=== PATIENT | female | born 1965 | race Asian ===

== ENCOUNTER 2017-07-21 14:46 | Emergency (ER) | payer MEDICAID, OTHER ==
[~2017-07-21] VITALS: Wt 82.3 kg
[~2017-07-21 14:46] MED LIST: CIPR500T4 PO; HYDR-3498 PO; IBUP800T25 PO
[2017-07-21] MEDS ORDERED: ONDANSETRON 4 MG INJ IV STA (16:44)
[2017-07-21] MEDS ORDERED: morphine 4 MG/ML VIAL IV STA (16:44)
[2017-07-21] MEDS ORDERED: SOD CHLORIDE 0.9% 1,000 ML IV STA (16:44)
[2017-07-21 17:07] LABS: BASOPHILS % 0.4 % (0.0-2.0); EOSINOPHILS # 0.2 10^3/ul (0.0-0.5); EOSINOPHILS % 2.2 % (0.0-7.0); HEMATOCRIT 44.8 % (37.0-47.0); HEMOGLOBIN 14.6 g/dl (12.0-16.0); LYMPHOCYTES # 2.6 10^3/ul (0.8-2.9); LYMPHOCYTES % 35.3 % (15.0-51.0); MEAN CORPUSCULAR HGB CONC 32.6 g/dl (32.0-37.0); MEAN PLATELET VOLUME 10.4 fl (7.4-10.4); MONOCYTE # 0.5 10^3/ul (0.3-0.9); MONOCYTES % 6.5 % (0.0-11.0); NEUTROPHIL # 4.1 10^3/ul (1.6-7.5); NEUTROPHILS % 55.3 % (39.0-77.0); PLATELET COUNT 226 10^3/UL (140-415); RED BLOOD COUNT 5.21 10^6/ul (4.20-5.40); RED CELL DISTRIBUTION WIDTH 12.9 % (11.5-14.5); WHITE BLOOD COUNT 7.4 10^3/ul (4.8-10.8)
[2017-07-21 17:26] LABS: ANION GAP 13 (8-16); BLOOD UREA NITROGEN 18 mg/dl (7-20); CALCIUM 8.6 mg/dl (8.4-10.2); CARBON DIOXIDE 26 mmol/L (21-31); CHLORIDE 108 mmol/L (97-110); CREATININE 0.95 mg/dl (0.44-1.00); GLUCOSE 73 mg/dl (70-220); POTASSIUM 4.2 mmol/L (3.5-5.1); SODIUM 143 mmol/L (135-144)
--- NOTE | 2017-07-21 17:37 | RADRPT ---
PROCEDURE: CT head CLINICAL INDICATION: Syncope TECHNIQUE: Contiguous 2.5 mm axial images were obtained from the vertex to the skull base. No int ravenous contrast was administered. The calculated dose length product (DLP) = 630.20 mGy-cm. The CTDlvol = 42.93 mGy. One or more of the following dose reduction techniques were used: Automated e xposure control, adjustment of the mA and or KV according to patient size, or use of iterative recon struction technique. COMPARISON: None FINDINGS: There is no evidence of acute intracranial hemorrhage or acute territorial infarct. No mass or mass effect is seen on this noncontrast study. The ventricles and cisterns are normal in size and confi guration. The preston-white matter differentiation is within normal limits. The visualized paranasal sinuses are normally aerated. The bony calvarium is unremarkable IMPRESSION: Unremarkable unenhanced CT of the brain RPTAT: HH .Rocky Li MD, Date Time Electronically viewed and signed by .Rocky Li MD, MD on 07/21/2017 17:37 .W/
[2017-07-21 17:38] LABS: TROPONIN-I < 0.012 ng/ml (0.00-0.12)
--- NOTE | 2017-07-21 17:49 | RADRPT ---
PROCEDURE: CT SCAN OF FACE AND SINUSES CLINICAL INDICATION: Syncope TECHNIQUE: Transaxial slices through the sinus was obtained with bone and soft tissue windows. Add itional sagittal and coronal reconstruction images were acquired. One of more of the following dose reduction techniques were utilized: -automatic exposure control.-adjustment of the mA and/or kV acco rding to patient size. -Use of iterative reconstruction technique.DICOM images available Radiation Dose: CTDI vol 29.41 mGy, DLP 508.24 mGy-cm. One of more of the following dose reduction techniques were utilized: -automatic exposure control -adjustment of the mA and/or kV according to patient size -Use of iterative reconstruction technique CONTRAST: None COMPARISON: CT head 07/21/2017 FINDINGS: Osteophytic spurring noted at C5-C7 level. Nasal septum is in the midline. Ostiomeatal unit is paten t with no blowout fracture noted. Atlantoaxial, atlanto-occipital joints, temporomandibular joints, hard palate appears intact. Fractured nasal bones seen. Soft tissue swelling noted over left tempora l region with some air also noted in the left middle cranial fossa. Nasopharynx, oropharynx appears unremarkable. Zygoma appears intact. The globe, retrobulbar area appears unremarkable. IMPRESSION: Fracture nasal bones with air and soft tissue swelling in the left temporal area. RPTAT: [facility] Physician Tristian Date Time Electronically viewed and signed by Physician Tristian on 07/21/2017 17:49 MB/
--- NOTE | 2017-07-21 18:03 | RADRPT ---
PROCEDURE: Right elbow CLINICAL INDICATION: Pain, fall TECHNIQUE: 3 views COMPARISON: None FINDINGS: Bony alignment and density appears unremarkable with no acute fracture, dislocation, periosteal reac tion noted. No radiopaque foreign body seen. No posterior fat pad sign noted. IMPRESSION: No fractures seen. RPTAT: [facility] Physician Tristian Date Time Electronically viewed and signed by Diony Hobbs Physician on 07/21/2017 18:03 MB/
[2017-07-21] MEDS ORDERED: DOCU-144 PO (18:05)
[2017-07-21] MEDS ORDERED: HYDR-906 PO (18:05)
--- NOTE | 2017-07-21 18:06 | ERD ---
ER Documentation Chief Complaint Chief Complaint r. sided facial,elbow,knee pain s/p syncopal episode on Sat while showering HPI Patient is a 51-year-old female with arthritis who presents with syncope. She said that she has a history of passing out in the past and that she passed out on Friday. That was 2 days ago. She felt like she would pain prior to passing out. She was in the bathroom and hit her face on the faucet. She has bruising around the right face and right eye. She has a headache and nausea which is why she came to the ER today. She also hit her right elbow and has right-sided elbow pain but she has full range of motion. Upon review of old medical records the patient one previous visit to the ER in 2015. She does have a primary doctor. ROS All systems reviewed and are negative except as per history of present illness. Medications Home Meds Active Scripts Docusate Sodium* (Colace*) 100 Mg Capsule, 100 MG PO TID, #30 CAP Prov:ANA BIRMINGHAM MD 07/21/17 Hydrocodone/Acetaminophen ([place] 5-325 Tablet) 1 Each Tablet, 1 TAB PO Q6H Y for PAIN, #7 TAB Prov:ANA BIRMINGHAM MD 07/21/17 Hydrocodone Bit-Acetaminophen* ([place]*) 5-325 Mg Tab, 1 TAB PO Q6 Y for PAIN, # 20 TAB Prov:GISELA CHURCH 05/13/15 Ibuprofen* (Motrin*) 800 Mg Tab, 800 MG PO Q6H Y for PAIN AND OR ELEVATED TEMP, #20 TAB Prov:GISELA CHURCH 05/13/15 Ciprofloxacin Hcl* (Ciprofloxacin Hcl*) 500 Mg Tablet, 500 MG PO BID for 7 Days , TAB Prov:GISELA CHURCH 05/13/15 Allergies Allergies: Coded Allergies: No Known Allergy (Unverified , 05/13/15) PMhx/Soc History of Surgery: Yes (APPENDECTOMY, ORTHO) Anesthesia Reaction: No Hx Neurological Disorder: No Hx Respiratory Disorders: No Hx Cardiac Disorders: No Hx Psychiatric Problems: No Hx Miscellaneous Medical Probl: No Hx Alcohol Use: Yes (OCASSIONALLY) Hx Substance Use: No Hx Tobacco Use: No Smoking Status: Never smoker FmHx Family History: No diabetes Physical Exam Vitals Vital Signs Date Time Temp Pulse Resp B/P Pulse Ox O2 Delivery O2 Flow Rate FiO2 07/21/17 18:13 70 20 114/67 99 Room Air 07/21/17 14:48 98.3 77 20 134/97 99 Physical Exam Const: Bruising to the face Head: Bruising the right base Eyes: Normal Conjunctiva ENT: Normal External Ears, Nose and Mouth. Neck: Full range of motion..~ No meningismus. Resp: Clear to auscultation bilaterally Cardio: Regular rate and rhythm, no murmurs Abd: Soft, non tender, non distended. Normal bowel sounds Skin: Bruising of the right face Back: No midline or flank tenderness Ext: No cyanosis, or edema Neur: Awake and alert Psych: Normal Mood and Affect Result Diagram: 07/21/17165207/21/171652 Results 24 hrs Laboratory Tests Test 07/21/17 16:53 White Blood Count 7.410^3/ul Red Blood Count 5.2110^6/ul Hemoglobin 14.6g/dl Hematocrit 44.8% Mean Corpuscular Volume 86.0fl Mean Corpuscular Hemoglobin 28.0pg Mean Corpuscular Hemoglobin Concent 32.6g/dl Red Cell Distribution Width 12.9% Platelet Count 30713^3/UL Mean Platelet Volume 10.4fl Neutrophils % 55.3% Lymphocytes % 35.3% Monocytes % 6.5% Eosinophils % 2.2% Basophils % 0.4% Nucleated Red Blood Cells % 0.0/100WBC Neutrophils # 4.110^3/ul Lymphocytes # 2.610^3/ul Monocytes # 0.510^3/ul Eosinophils # 0.210^3/ul Basophils # 0.010^3/ul Nucleated Red Blood Cells # 0.010^3/ul Sodium Level 143mmol/L Potassium Level 4.2mmol/L Chloride Level 108mmol/L Carbon Dioxide Level 26mmol/L Anion Gap 13 Blood Urea Nitrogen 18mg/dl Creatinine 0.95mg/dl Glucose Level 73mg/dl Calcium Level 8.6mg/dl Troponin I < 0.012ng/ml Current Medications Medications (Trade) Dose Ordered Sig/Corazon Route PRN Reason Start Time Stop Time Status Last Admin Dose Admin Sodium Chloride (NS) 1,000 ml @ 1,000 mls/hr Q1H STAT IV 07/21/17 16:44 07/21/17:43 DC 07/21/17 17:08 Morphine Sulfate (morphine) 4 mg ONCE STAT IV 07/21/17 16:44 07/21/17 16:45 DC Ondansetron HCl (Zofran Inj) 4 mg ONCE STAT IV 07/21/17 16:44 07/21/17 16:45 DC Procedures/MDM EKG read by me: Rate/Rhythm: Regular rate and rhythm at a rate of 65 Intervals: Normal Impression: No evidence of ischemia or arrhythmia CT brain negative per radiology. CT face shows nasal fractures per radiology. Patient is a 51-year-old female presents with syncope. Her laboratory studies are normal. EKG was normal. CT brain shows no skull fracture or intracranial hemorrhage. Her CT face does show nasal bone fractures. At this point I believe outpatient management is appropriate. She was given copies of her laboratory studies and CT scan report. She can return for any worsening symptoms. She will need to follow-up closely with her primary doctor within 24- 48 hours. I told her that if she gets this feeling of possibly passing out she needs to sit down immediately to avoid falling and hurting herself in the future. Departure Diagnosis: Primary Impression: Nasal fracture Encounter type: initial encounter Fracture type: closed Qualified Code: S02.2XXA - Closed fracture of nasal bone, initial encounter Additional Impression: Syncope Syncope type: unspecified Qualified Code: R55 - Syncope, unspecified syncope type Condition: Fair Patient Instructions: Fracture, Nose (With X-Ray), Syncope, Unk Cause Referrals: YUE COX Additional Instructions: Call your primary care doctor TOMORROW for an appointment during the next 1-2 days.See the doctor sooner or return here if your condition worsens before your appointment time. ANA BIRMINGHAM MD Jul 21, 2017 18:06
[2017-07-21 18:13] VITALS: BP 114/67; PULSE 70; RESP 20
== END 2017-07-21 18:22 | disposition home or self-care (01) ==
LOC: E/R 14:46
DX: S02.2XXA Fracture of nasal bones, initial encounter for closed fracture (principal); W18.2XXA Fall in (into) shower or empty bathtub, initial encounter; Y92.002 Bathroom of unspecified non-institutional (private) residence as the place of occurrence of the external cause
CPT/HCPCS: 36415; 70450; 70486; 73080; 80048; 84484; 85025; 93005; J7030; Z7502

== ENCOUNTER 2017-12-26 21:29 | Emergency (ER) | END 2017-12-27 02:29 | disposition home or self-care (01) ==